=== PATIENT | male | born 1965 | race Caucasian/White ===

== ENCOUNTER 2018-02-14 11:59 | Inpatient (IN) | payer OTHER ==
[~2018-02-14] VITALS: Ht 167.6 cm; Wt 77.1 kg
--- NOTE | ~2018-02-14 | EKG ---
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: Mae PACE : 1965 Requested By: Pascual Ozuna Order Number: [id number] MD: Luis Chaudhari Measurements Intervals [place] Rate: 68 P: -23 NE: 150 QRS: -23 QRSD: 101 T: -4 QT: 427 QTc: 455 Interpretive Statements Sinus rhythm RSR' in V1 or V2, probably normal variant Cannot rule out Inferior infarct, old No previous ECG available for comparison Electronically Signed On 02-15-2018 13:44:11 CDT by Luis Chaudhari [email or web address] <ELECTRONICALLY SIGNED> By: Luis Chaudhari MD, [facility] 02/15/18 1344 1237 1237 Luis Chaudhari MD, FAC /EPI
--- NOTE | ~2018-02-14 | HC ---
[facility] [place] [address] CONSULTATION Name: CORINNE HERNANDEZ Room #: 351-P [facility] IN M.R.#: [id number] Admission: 02/14/18 Attend Phys: Ryan Otero Discharge: 02/16/18 Date of : 63 Report #: [id number] THIS REPORT FOR: //name// CC: JENNIFER physician/PCP Ryan Tomas DATE OF SERVICE: 02/14/2018 HISTORY OF PRESENT ILLNESS: This is a 52-year-old male patient who was evaluated by me for incoordination and weakness on the right side. This patient woke up yesterday morning with these symptoms. So the time of onset is the night before when he went to sleep. He did not seek any medical attention yesterday and may have become somewhat worse. He came to Emergency Room and a CT scan of the head was done, which demonstrated a lacunar infarct in the left thalamus extending into the left internal capsule. So looks like a CT scan is already showing the stroke. He also underwent a carotid Doppler, which was unremarkable. It showed mild disease. The patient has multiple vascular risk factors and he does not see a doctor. He also had some speech difficulty, but that is difficult for me to tell because this patient speaks Yi only. REVIEW OF SYSTEMS: Indicate that he was diagnosed with hypertension 4 years ago. He did not seek medical attention. He did not take any medications. I carried out other 14-point review of system. This patient does have history of untreated hypertension. He was not taking any cholesterol medication. He was not on any aspirin. He denies any prior history of stroke. His blood sugar is high here. He is not aware of the fact that he is a diabetic. That was his relevant 14-point review of systems. PAST MEDICAL HISTORY: Negative for stroke. FAMILY HISTORY: Negative for early age stroke. SOCIAL HISTORY: He smokes. PHYSICAL EXAMINATION: Indicates that he is alert. He is responsive. Family think his memory and fund of knowledge is his baseline, but his speech is slurred. Cranial nerve examination 2-12 indicates that he probably has a slight right facial palsy. I did not see any hemianopsia. He is weak in the right upper and right lower extremities. He also is ataxic there. Sensation is difficult to check. His eyes are somewhat red. I tried to look at the fundus, but I could not have a very good look at the patient's fundus. His cardiac examination does not appear to be showing any atrial fibrillation. Respiratory examination is unremarkable. His neuromuscular examination is symmetrical. He does not have any respiratory difficulty or rhonchi or marked rhonchi. His blood pressure is 160/100, respirations 16, pulse is 70, temperature is 97.8. [facility] [address] [place] [address] CONSULTATION Name: CORINNE HERNANDEZ Room #: 351-P [facility] IN M.R.#: [id number] Admission: 02/14/18 Attend Phys: Ryan Otero Discharge: 02/16/18 Date of : 63 Report #: [id number] LABORATORY DATA: His white count is 6.8 and his blood sugar is high. IMPRESSION: 1. Lacunar cerebrovascular accident, which is about 36-hour old. It is already showing up on the CT scan. This patient is not a candidate for TPA or thrombectomy. 2. Hyperlipidemia, which needs to be aggressively treated. 3. Nicotine abuse. He must stop smoking. 4. Antiplatelet therapy. 5. Hyperglycemia, which should be aggressively treated. RECOMMENDATIONS: 1. MRI of the brain. 2. MRA of the head. 3. Aggressive treatment of his hyperglycemia. 4. Aggressive treatment of his hyperlipidemia with probably high dose strength. 5. PT. 6. OT. 7. Permissive hypertension to keep the blood pressure somewhat high initially. All of it was discussed with the patient and the family in detail. I discussed the patient with the ER doctor and Dr. Otero, the admitting doctor and more than 50 minutes of time was spent taking care of him and majority of that time was spent counseling the family and coordinating his care by talking to other healthcare professionals. <ELECTRONICALLY SIGNED> By: Roger Tomas MD 02/26/18 1355 1548 1815 Roger Tomas MD /nt
--- NOTE | ~2018-02-14 | 2DMMODE ---
[facility] [address] [place] [address] 2 D/M-MODE ECHOCARDIOGRAM Name: CORINNE HERNANDEZ Room #: 351-P ADM IN M.R.#: [id number] Admission: 02/14/18 Attend Phys: Ryan Stafford Discharge: Date of : 63 Date of Service: 02/16/18 0919 Report #: [id number] THIS REPORT FOR: //name// APPROVED REPORT Study performed: 02/16/2018 08:30:09 EXAM: Comprehensive 2D, Doppler, and color-flow Echocardiogram Patient Location: Echo lab Room #: [facility] Status: routine BSA: 1.85 HR: 67 bpm BP: 142/84 mmHg Other Information Study Quality: Good Indications CVA/TIA Diabetes Hypertension/HDD Echo Enhancing Agent Indication: Rule out Shunt Agent(s) / Amount(s) Used: Agitated Saline 7 cc 2D Dimensions RVDd: 31.10 mm LVEF(%): 53.64 (>50%) IVSd: 9.26 (7-11mm) LVOT Diam: 18.57 (18-24mm) LVDd: 48.94 mm PWd: 9.42 (7-11mm) Ascending Ao: 33.23 (22-36mm) LVDs: 35.37 (25-40mm) Aortic Root: 33.65 mm IVC: 17.00 mm Mcguire's LVEF: 53.64 % Volumes Left Atrial Volume (Systole) Single Plane 4CH: 47.68 mL Single Plane 2CH: 49.32 mL LA ESV Index: 29.00 mL/m2 Aortic Valve AoV Peak Fito.: 1.13 m/s AO Peak Gr.: 5.09 mmHg LVOT Max P.09 mmHg LVOT Max V: 1.01 m/s [facility] [place] [address] 2 D/M-MODE ECHOCARDIOGRAM Name: CORINNE HERNANDEZ Room #: 351-P [facility] IN M.R.#: [id number] Admission: 02/14/18 Attend Phys: Ryan Stafford Discharge: Date of : 63 Date of Service: 02/16/18 0919 Report #: [id number] ADEOLA Vmax: 2.43 cm2 Mitral Valve E/A Ratio: 1.1 MV Decel. Time: 108.16 ms MV E Max Fito.: 0.80 m/s MV A Fito.: 0.73 m/s MV PHT: 31.37 ms IVRT: 115.34 ms Pulmonary Valve PV Peak Fito.: 0.86 m/s PV Peak Gr.: 2.94 mmHg Pulmonary Vein P Vein S: 0.46 m/s P Vein A: 0.27 m/s P Vein D: 0.34 m/s P Vein A Dur.: 124.6 msec P Vein S/D Ratio: 1.35 Tricuspid Valve TR Peak Fito.: 2.37 m/s TR Peak Gr.: 22.47 mmHg PA Pressure: 27.00 mmHg Left Ventricle The left ventricle is normal size. There is normal left ventricular wall thickness. The left ventricular systolic function is normal. The left ventricular ejection fraction is within the normal range. LVEF is 55-60%. Grade II - pseudonormal filling dynamics. Right Ventricle The right ventricle is normal size. The right ventricular systolic function is normal. Atria The left atrium size is normal. Interatrial septum is intact without evidence of ASD or PFO. The right atrium size is normal. Aortic Valve The aortic valve is normal in structure. No aortic regurgitation is present. There is no aortic valvular stenosis. Mitral Valve The mitral valve is normal in structure. Trace mitral regurgitation. No evidence of mitral valve stenosis. Tricuspid Valve [facility] [address] [address] 2 D/M-MODE ECHOCARDIOGRAM Name: CORINNE HERNANDEZ Room #: 351-P [facility] IN .R.#: [id number] Admission: 02/14/18 Attend Phys: Ryan Stafford Discharge: Date of : 63 Date of Service: 02/16/18 0919 Report #: [id number] The tricuspid valve is normal in structure. There is trace tricuspid regurgitation. Estimated PAP 27 mmHg. There is no pulmonary hypertension. Pulmonic Valve The pulmonary valve is normal in structure. There is no pulmonic valvular regurgitation. Great Vessels The aortic root is normal in size. IVC is normal in size and collapses >50% with inspiration. Pericardium There is no pericardial effusion. <Conclusion> The left ventricle is normal size. There is normal left ventricular wall thickness. The left ventricular systolic function is normal. The right ventricle is normal size. The right ventricular systolic function is normal. The left atrium size is normal. Interatrial septum is intact without evidence of ASD or PFO. The aortic valve is normal in structure. Trace mitral regurgitation. There is trace tricuspid regurgitation. Estimated PAP 27 mmHg. <ELECTRONICALLY SIGNED> By: Oniel Moran MD 02/16/18918 8 8 Oniel Moran MD /INF
[2018-02-14 12:10] VITALS: BP 152/103
[2018-02-14 12:32] LABS: POC CA IONIZED 4.7 mg/dL (4.5-5.3); POC CREATININE 0.7 mg/dL (0.6-1.3); POC HEMOGLOBIN 13.9 g/dL (14.0-18.0); POC POTASSIUM 4.2 mmol/L (3.5-5.1)
[2018-02-14 12:33] LABS: ABSOLUTE NEUTROPHILS 4.2 thou/uL (1.4-8.2); BASOPHILS 0.5 % (0.0-2.0); EOSINOPHILS 1.2 % (0.0-3.0); HEMATOCRIT 43.3 % (42.0-52.0); LYMPHOCYTES 27.8 % (24.0-44.0); MCH 32.5 pg (26.0-34.0); MCHC 34.6 g/dL (28.0-37.0); MCV 93.9 fL (80.0-100.0); MONOCYTES 8.8 % (1.0-8.0); POLYS 61.7 % (36.0-66.0); RBC 4.61 mil/uL (4.50-6.00); RDW 12.8 % (10.5-14.5); WBC 6.8 thou/uL (4.0-11.0)
[2018-02-14 12:37] LABS: PLATELET COUNT 228 thou/uL (150-400)
[2018-02-14 12:42] LABS: ANION GAP 7 mmol/L (7-16); BUN 12 mg/dL (7-18); CALCIUM 9.2 mg/dL (8.5-10.1); CHLORIDE 103 mmol/L (98-107); CO2 28 mmol/L (21-32); CREATININE 0.8 mg/dL (0.7-1.3); GLUCOSE 205 mg/dL (74-106); POTASSIUM 4.2 mmol/L (3.5-5.1); SODIUM 138 mmol/L (136-145)
[2018-02-14 12:50] LABS: ALBUMIN 3.5 g/dL (3.4-5.0); APTT 28.3 Seconds (24.5-32.8); MAGNESIUM 1.9 mg/dL (1.8-2.4); PROTIME 10.3 Seconds (9.3-11.4); SGOT 16 U/L (15-37); SGPT 25 U/L (30-65); TOTAL BILIRUBIN 0.4 mg/dL (<0.1-1.0); TOTAL PROTEIN 7.1 g/dL (6.4-8.2); TROPONIN-I < 0.04 ng/mL (<0.06)
[2018-02-14 13:25] LABS: CHOLESTEROL 302 mg/dL (<200); HDL CHOLESTEROL 41 mg/dL (>40); LDL CHOLESTEROL 248 mg/dL (<100); TC:HDL 7.4 Ratio (Not establshd); TRIGLYCERIDE 69 mg/dL (<150); VLDL 14 mg/dL (<40)
[2018-02-14 13:58] VITALS: BP 153/100
[2018-02-14 14:31] VITALS: BP 152/94
[2018-02-14 14:35] VITALS: BP 160/100
[2018-02-14 19:30] VITALS: BP 113/72
[2018-02-15 00:10] VITALS: BP 130/67
[2018-02-15 01:08] LABS: GLYCOHEMOGLOBIN (HGB A1C) 8.8 % (4.8-5.6)
[2018-02-15 03:30] VITALS: BP 126/78
[2018-02-15 08:00] VITALS: BP 131/77
[2018-02-15 11:06] VITALS: BP 136/83
[2018-02-15 16:20] VITALS: BP 144/89
[2018-02-15 18:53] VITALS: BP 131/86
[2018-02-16 03:16] VITALS: BP 149/89
[2018-02-16 07:21] VITALS: BP 142/84
[2018-02-16] MEDS ORDERED: ASPIRIN325 PO (08:54)
[2018-02-16] MEDS ORDERED: NORVASC10 MG PO (08:54)
[2018-02-16] MEDS ORDERED: ATORVASTATIN CA40 MG PO (08:54)
[2018-02-16] MEDS ORDERED: GLYBURIDE 5 MG T5 M1 PO (08:54)
[2018-02-16 12:13] VITALS: BP 148/87
[2018-02-16 15:10] VITALS: BP 148/87
[2018-02-16 15:51] VITALS: BP 148/87
== END 2018-02-16 17:00 | disposition home or self-care (01) | DRG 66 ==
LOC: ER 11:59 → EROBS 13:08 → 3W 14:21 → ENTRNSPT 02-16 16:50 → 3W 02-16 17:00
PROVIDERS: Emergency Medicine; Hospitalist
DX: I63.9 Cerebral infarction, unspecified (principal); F17.210 Nicotine dependence, cigarettes, uncomplicated; I10 Essential (primary) hypertension; Z79.82 Long term (current) use of aspirin; E78.5 Hyperlipidemia, unspecified; E11.65 Type 2 diabetes mellitus with hyperglycemia; Z79.899 Other long term (current) drug therapy
CPT/HCPCS: 10879